=== PATIENT | female | born 1995 | race Caucasian/White ===

== ENCOUNTER 2017-06-03 12:32 | Emergency (ER) | payer BC, MEDICAID ==
[~2017-06-03] VITALS: Ht 162.6 cm; Wt 81.6 kg
[~2017-06-03 12:32] MED LIST: FLAGYL 250MG.250 MG PO; PRENATAL1 TA2 PO
--- OUTSIDE RECORDS SUMMARY | 2017-06-03 12:38 | External Medical Summary Rpt ---
Author Author YVAN [facility] Organization [facility] Address Unknown Phone Unavailable Care Team Providers Care Station Attendant Name Role Phone DR SHIVAM PCP [phone] Encounter YVAN [facility] [id number] Date(s): 07/28/16 - 08/22/16 [facility] [address] [place] [address]- [phone] Discharge Disposition: OP Self Care or Home Attending Physician: GUERLINE JENSEN MD-OBG Admitting Physician: GUERLINE JENSEN MD-OBG Referring Physician: GUERLINE JENSEN MD-OBAdrian Reason for Visit ABNORMAL UTERINE AND VAGINAL BLEEDING, UNSPECIFIED Vital Signs No data available for this section Problem List No data available for this section Allergies, Adverse Reactions, Alerts No data available for this section Medications No data available for this section Results No data available for this section Immunizations No data available for this section Procedures No data available for this section Social History No data available for this section Assessment and Plan No data available for this section Hospital Discharge Instructions No data available for this section
--- OUTSIDE RECORDS SUMMARY | 2017-06-03 12:38 | External Medical Summary Rpt ---
Author Author YVAN [facility] Organization [facility] Address Unknown Phone Unavailable Care Team Providers Care Christian Science Reader Name Role Phone DR SHIVAM PCP [phone] Encounter YVAN [facility] [id number] Date(s): 07/28/16 - 08/22/16 [facility] [address] [place] [address]- [phone] Discharge Disposition: OP Self Care or Home [...]
--- OUTSIDE RECORDS SUMMARY | 2017-06-03 12:38 | External Medical Summary Rpt ---
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 [place] [address]- Discharge Disposition: OP Self Care or Home Attending Physician: GUERLINE JENSEN MD-OBG Admitting Physician: GUERLINE JENSEN MD-OBG Referring Physician: GUERLINE JENSEN MD-OBG Reason for Visit ABNORMAL UTERINE AND VAGINAL BLEEDING, UNSPECIFIED Vital Signs Most recent 1 2 3 to oldest [Reference Range]: Temperature Temporal artery Temporal artery Temporal artery Source scanning (03/23/17 scanning (03/23/17 scanning (03/23/17 3:36 PM) 3:09 PM) 2:20 PM) Temperature Fahrenheit Fahrenheit Fahrenheit Mode (03/23/17 3:36 PM) (03/23/17 3:09 PM) (03/23/17 2:20 PM) Temperature, 98.1 Deg F 97.6 Deg F 97.2 Deg F Fahrenheit (03/23/17 3:36 PM) (03/23/17 3:09 PM) (03/23/17 2:20 PM) [96.8-99.7 Deg F] Clinical 36.4 Deg C 36.2 Deg C 36.8 Deg C Temperature, (03/23/17 3:09 PM) (03/23/17 2:20 PM) (03/23/17 12:56 C PM) Heart Rate 68 bpm 71 bpm 77 bpm Monitored (03/23/17 3:36 PM) (03/23/17 3:09 PM) (03/23/17 3:00 PM) [60-100 bpm] Respiratory 16 Breaths/Min 16 Breaths/Min 16 Breaths/Min Rate [14-20 (03/23/17 3:36 PM) (03/23/17 3:09 PM) (03/23/17 3:00 PM) Breaths/Min] Blood Arm, left upper Pressure (03/23/17 12:56 Location PM) Blood Non-Invasive BP Pressure Device (03/23/17 Source 12:56 PM) Blood Sitting (03/23/17 Pressure 12:56 PM) Position Blood 105/61 mmHg 107/60 mmHg 108/63 mmHg Pressure (03/23/17 3:36 PM) (03/23/17 3:09 PM) (03/23/17 3:00 PM) [90-140/60-9 0 mmHg] Mean 76 mmHg 79 mmHg 79 mmHg Arterial (03/23/17 3:09 PM) (03/23/17 2:50 PM) (03/23/17 2:35 PM) Pressure (MAP) Mean 80 79 84 Arterial (03/23/17 3:09 PM) (03/23/17 2:50 PM) (03/23/17 2:35 PM) Pressure (MAP)-BMDI Oxygen 100 % 99 % 99 % Saturation (03/23/17 3:36 PM) (03/23/17 3:09 PM) (03/23/17 3:00 PM) [94-100 %] Oxygen Room air Room air Room air Therapy Mode (03/23/17 3:36 PM) (03/23/17 3:09 PM) (03/23/17 3:00 PM) Oxygen Flow 2 Liter/Min 2 Liter/Min 2 Liter/Min Rate (03/23/17 2:35 PM) (03/23/17 2:30 PM) (03/23/17 2:20 PM) FiO2 Nursing 2 % (03/23/17 2:25 PM) Height Entry [place] Format (03/23/17 1:08 PM) Height/Lengt 5 ft h, THAI (03/23/17 1:08 PM) (ft) Height/Lengt 6 Inch h THAI (03/23/17 1:08 PM) CLINICALHEIG 167.64 cm HT (03/23/17 1:08 PM) Weight Standing scale Source (03/23/17 1:08 PM) Weight Entry [place] Format (03/23/17 1:08 PM) Weight 181 lb Yi lb (03/23/17 1:08 PM) CLINICALWEIG 82.27 kg HT (03/23/17 1:08 PM) Body Surface 1.92 m2 Area (BSA) (03/23/17 1:08 PM) Body Mass 29.3 kg/m2 Index *HI* [19.0-24.0 (03/23/17 1:08 PM) kg/m2] [place] Body 59 kg Weight (03/23/17 1:08 PM) Problem List No Known Problems Allergies, Adverse Reactions, Alerts No Known Medication Allergies Medications No Known Medications Results ENDOCRINOLOGY Most recent 1 to oldest [Reference Range]: HCG Urine Negative 1 Qualitative (03/23/17 1:07 PM) 1Result Comment: Performed in Day Surgery. Immunizations No data available for this section Procedures Procedure Date Related Body Site Diagnosis hysteroscopy d&c Social History No data available for this section Assessment and Plan No data available for this section Hospital Discharge Instructions No data available for this section
--- OUTSIDE RECORDS SUMMARY | 2017-06-03 12:38 | External Medical Summary Rpt ---
Author Author YVAN [facility] Organization [facility] Address Unknown Phone Unavailable Care Team Providers Care Supervisor Sign Shop Name Role Phone PHY, UNKNOWN PCP Unavailable Encounter YVAN [facility] [id number] Date(s): 08/24/16 - 09/29/16 [facility] [address] [place] [address]- Discharge Diagnosis: Abnormal uterine bleeding (AUB) Discharge Diagnosis: Endometrial polyp Discharge Disposition: OP Self Care or Home Attending Physician: GUERLINE JENSEN MD-OBG Admitting Physician: GUERLINE JENSEN MD-OBG Referring Physician: GUERLINE JENSEN MD-OBG Reason for Visit ABNORMAL UTERINE AND VAGINAL BLEEDING, UNSPECIFIED Vital Signs Most recent 1 2 3 to oldest [Reference Range]: Temperature Temporal artery Temporal artery Temporal artery Source scanning (09/29/16 scanning (09/29/16 scanning (09/29/16 9:55 AM) 9:50 AM) 9:15 AM) Temperature Fahrenheit Fahrenheit Fahrenheit Mode (09/29/16 9:55 AM) (09/29/16 9:50 AM) (09/29/16 9:15 AM) Temperature, 98.5 Deg F 99.1 Deg F 97.8 Deg F Fahrenheit (09/29/16 9:55 AM) (09/29/16 9:50 AM) (09/29/16 9:15 AM) [96.8-99.7 Deg F] Temperature, 37 Deg C Celsius (09/29/16 8:16 AM) [35.2-38.1 Deg C] Clinical 98.6 Deg F Temperature, (09/29/16 8:16 AM) F Clinical 36.9 Deg C 36.6 Deg C Temperature, (09/29/16 9:55 AM) (09/29/16 9:15 AM) C Pulse Method Non-Invasive BP Device (09/29/16 8:16 AM) Pulse Rhythm Regular (09/29/16 8:16 AM) Peripheral 70 bpm Pulse Rate (09/29/16 8:16 AM) [60-100 bpm] Heart Rate 76 bpm 74 bpm 83 bpm Monitored (09/29/16 9:55 AM) (09/29/16 9:50 AM) (09/29/16 9:40 AM) [60-100 bpm] Respiratory 14 Breaths/Min 10 Breaths/Min 12 Breaths/Min Rate [14-20 (09/29/16 9:55 AM) *LOW* *LOW* Breaths/Min] (09/29/16 9:50 AM) (09/29/16 9:40 AM) Blood Arm, left upper Pressure (09/29/16 8:16 AM) Location Blood Non-Invasive BP Pressure Device (09/29/16 Source 8:16 AM) Blood Supine Pressure (09/29/16 8:16 AM) Position Blood 120/66 mmHg 115/57 mmHg 118/60 mmHg Pressure (09/29/16 9:55 AM) (09/29/16 9:50 AM) (09/29/16 9:40 AM) [90-140/60-9 0 mmHg] Mean 78 77 85 Arterial (09/29/16 9:55 AM) (09/29/16 9:50 AM) (09/29/16 9:40 AM) Pressure (MAP)-BMDI Oxygen 98 % 97 % 97 % Saturation (09/29/16 9:55 AM) (09/29/16 9:50 AM) (09/29/16 9:40 AM) [94-100 %] Oxygen Room air Room air Nasal cannula Therapy Mode (09/29/16 9:55 AM) (09/29/16 9:30 AM) (09/29/16 9:15 AM) Oxygen Flow 2 Liter/Min Rate (09/29/16 9:15 AM) Height Stated Source (09/29/16 8:16 AM) Height Entry [place] Format (09/29/16 8:16 AM) Height/Lengt 67 Inch h GERMAN (09/29/16 8:16 AM) CLINICALHEIG 170.18 cm HT (09/29/16 8:16 AM) Weight Standing scale Source (09/29/16 8:16 AM) Weight Entry [place] Format (09/29/16 8:16 AM) Weight 175 lb Maori lb (09/29/16 8:16 AM) CLINICALWEIG 79.55 kg HT (09/29/16 8:16 AM) Body Surface 1.91 m2 Area (BSA) (09/29/16 8:16 AM) Body Mass 27.5 kg/m2 Index *HI* [19.0-24.0 (09/29/16 8:16 AM) kg/m2] [place] Body 61 kg Weight (09/29/16 8:16 AM) Problem List No Known Problems Allergies, Adverse Reactions, Alerts No Known Medication Allergies Medications No Known Medications Results ENDOCRINOLOGY Most recent 1 to oldest [Reference Range]: HCG Urine Negative 1 Qualitative (09/29/16 8:05 AM) 1Result Comment: Performed in Day Surgery. Immunizations No data available for this section Procedures Procedure Date Related Body Site Diagnosis wisdom teeth extraction Social History No data available for this section Assessment and Plan No data available for this section Hospital Discharge Instructions No data available for this section
--- OUTSIDE RECORDS SUMMARY | 2017-06-03 12:38 | External Medical Summary Rpt ---
Author Author YVAN [facility] Organization [facility] Address Unknown Phone Unavailable Care Team Providers Care Insulation Helper Name Role Phone PHY, UNKNOWN PCP Unavailable Encounter YVAN [facility] [id number] Date(s): 01/24/17 - 03/23/17 [facility] [address] [place] [address]- [phone] Discharge Disposition: OP Self Care or Home [...] 2 % (03/23/17 2:25 PM) Height Entry [place] Format (03/23/17 1:08 PM) Height/Lengt 5 ft h, [place] (03/23/17 1:08 PM) (ft) Height/Lengt 6 Inch h [place] (03/23/17 1:08 PM) CLINICALHEIG 167.64 cm HT (03/23/17 1:08 PM) Weight Standing scale Source (03/23/17 1:08 PM) Weight Entry [place] Format (03/23/17 1:08 PM) Weight 181 lb German lb (03/23/17 1:08 PM) CLINICALWEIG 82.27 kg HT (03/23/17 1:08 PM) Body Surface 1.92 m2 Area (BSA) (03/23/17 1:08 PM) Body Mass 29.3 kg/m2 Index *HI* [19.0-24.0 (03/23/17 1:08 PM) kg/m2] [place] Body 59 kg Weight (03/23/17 1:08 PM) [...]
--- OUTSIDE RECORDS SUMMARY | 2017-06-03 12:38 | External Medical Summary Rpt ---
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 [address]- Discharge Diagnosis: Abnormal uterine bleeding (AUB) Discharge [...] Stated Source (09/29/16 8:16 AM) Height Entry [place] Format (09/29/16 8:16 AM) Height/Lengt 67 Inch h ICELANDIC (09/29/16 8:16 AM) CLINICALHEIG 170.18 cm HT (09/29/16 8:16 AM) Weight Standing scale Source (09/29/16 8:16 AM) Weight Entry [place] Format (09/29/16 8:16 AM) Weight 175 lb [place] lb (09/29/16 8:16 AM) CLINICALWEIG 79.55 kg HT (09/29/16 8:16 AM) Body Surface 1.91 m2 Area (BSA) (09/29/16 8:16 AM) Body Mass 27.5 kg/m2 Index *HI* [19.0-24.0 (09/29/16 8:16 AM) kg/m2] [place] Body 61 kg Weight (09/29/16 8:16 AM) [...]
--- OUTSIDE RECORDS SUMMARY | 2017-06-03 12:39 | External Medical Summary Rpt | CCD ---
Author Author , BRYAN ADAMS Address Unknown Phone [email or web address] Purpose Continuity of Care Document - 05-20-2014 through 2016 Results Labs Lab Lab Date Result Refere Interp Status Commen Order Detail nces retati t Range on TSH SerPl DL<=0.005 mIU/L-aCnc (03-16-2017 11:57) TSH TCON 0.4-4.2 complet SerPl 017 Multipl ed DL<=0.0 11:57 e SCM 05 orders. mIU/L-a Tests Cnc consoli dated. L uIU/mL T4 Free SerPl-mCnc (03-16-2017 11:57) T4 Free TCON 0.8-1.7 complet 017 Multipl ed SerPl-m 11:57 e SCM Cnc orders. Tests consoli dated. L ng/dL TSH SerPl DL<=0.005 mIU/L-aCnc (03-16-2017 11:57) TSH 1.88 0.4-4.2 complet SerPl 017 uIU/mL ed DL<=0.0 11:57 05 mIU/L-a Cnc T4 Free SerPl-mCnc (03-16-2017 11:57) T4 Free 1.2 0.8-1.7 complet 017 ng/dL ed SerPl-m 11:57 Cnc ICTOTEST (05-20-2014 18:45) ICTOTES NEGATIV complet T 014 E ed 18:45 UA, MICROSCOPIC REVIEW (05-20-2014 18:45) BACTERI 1+ HPF Absent complet A 014 ed 18:45 MUCOUS 1+ complet 014 ed 18:45 WBC -- 5-10 0-5 complet 014 HPF ed 18:45 EPITHEL 05-20- 5-10 complet IAL 014 HPF ed CELLS 18:45 URINALYSIS COMPLETE (05-20-2014 18:45) LEUKOCY 11-11-2 TRACE NEGATIV complet ESSENCE 014 E ed 18:45 NITRITE 11-11-2 NEGATIV NEGATIV complet 014 E E ed 18:45 UROBILI 11-11-2 1.0 0.2-1.0 complet NOGEN 014 E.U./DL ed 18:45 PROTEIN 11-11-2 TRACE NEGATIV complet 014 MG/DL E ed 18:45 PH 11-11-2 5.5 5.0-9.0 complet 014 ed 18:45 BLOOD 11-11-2 NEGATIV NEGATIV complet 014 E E ed 18:45 SPECIFI 11-11-2 1.029 1.006-1 complet C 014 .035 ed GRAVITY 18:45 KETONE 11-11-2 NEGATIV NEGATIV complet 014 E MG/DL E ed 18:45 BILIRUB 11-11-2 SMALL NEGATIV complet IN 014 E ed 18:45 GLUCOSE 11-11-2 NEGATIV NEGATIV complet 014 E MG/DL E ed 18:45 CLARITY 11-11-2 CLOUDY complet 014 ed 18:45 COLOR 11-11-2 YELLOW complet 014 ed 18:45 COMP. METABOLIC PANEL (CHEM 12) (05-20-2014 18:45) GLOBULI 11-11-2 3.7 2.4-4.8 complet N 014 G/DL ed 18:45 SODIUM 11-11-2 140 133-144 complet 014 mmol/L ed 18:45 BUN 11-11-2 9 MG/DL 7-18 complet 014 ed 18:45 GLUCOSE 11-11-2 96 70-110 complet 014 MG/DL ed 18:45 BILIRUB 11-11-2 0.40 0.00-1. complet IN, 014 MG/DL 00 ed TOTAL 18:45 ALT 11-11-2 14 U/L 12-78 complet 014 ed 18:45 AST 11-11-2 11 U/L 15-37 complet 014 ed 18:45 ALKALIN 11-11-2 82 U/L 45-117 complet E 014 ed PHOSPHA 18:45 TASE CALCIUM 11-11-2 9.4 8.5-10. complet 014 MG/DL 1 ed 18:45 A/G 11-11-2 1.3 0.6-1.6 complet RATIO 014 ed 18:45 ALBUMIN 11-11-2 4.9 3.4-5.0 complet 014 G/DL ed 18:45 PROTEIN 11-11-2 8.6 6.4-8.4 complet , TOTAL 014 G/DL ed 18:45 CREATIN 11-11-2 0.7 0.6-1.3 complet INE 014 MG/DL ed 18:45 CO2 11-11-2 28 21-32 complet 014 mmol/L ed 18:45 CHLORID -11-2 104 98-107 complet E 014 mmol/l ed 18:45 POTASSI -11-2 3.6 3.6-5.2 complet UM 014 mmol/l ed 18:45 LIPASE (05-20-2014 18:45) LIPASE -11-2 75 U/L 73-393 complet 014 ed 18:45 AMYLASE (05-20-2014 18:45) AMYLASE -11-2 57 U/L 25-115 complet 014 ed 18:45 URINE HCG (05-20-2014 18:45) URINE -11-2 NEGATIV complet HCG 014 E ed 18:45 CBC\T\AUTO DIFF (05-20-2014 18:45) NEUT # -11-2 4.8 2.7-6.9 complet 014 K/ul ed 18:45 BASO% 11-11-2 0.5 % 0.0-2.0 complet 014 ed 18:45 EOS% 11-11-2 1.7 % 0.0-11. complet 014 0 ed 18:45 MONOS% 11-11-2 7.4 % 1.0-14. complet 014 0 ed 18:45 LYMPH% 11-11-2 29.4 % 10.0-42 complet 014 .0 ed 18:45 NEUTROP 11-11-2 61.0 % 43.0-83 complet HILS% 014 .0 ed 18:45 MPV 11-11-2 9.4 fl 6.4-10. complet 014 4 ed 18:45 PLATELE -11-2 304 122-454 complet T 014 K/UL ed 18:45 RDW 11-11-2 13.0 % 10.1-16 complet 014 .2 ed 18:45 MCHC 11-11-2 33.1 32.5-35 complet 014 g/dl .3 ed 18:45 MCH 11-11-2 31.1 pg 26.4-33 complet 014 .3 ed 18:45 MCV 11-11-2 93.8 fl 78.2-10 complet 014 1.8 ed 18:45 HCT 11-11-2 44.7 % 29.9-45 complet 014 .5 ed 18:45 HGB -11-2 14.8 10.0-16 complet 014 gm/dl .0 ed 18:45 RBC 11-11-2 4.770 3.450-5 complet 014 M/ul .400 ed 18:45 WBC 11-11-2 7.9 3.0-11. complet 014 K/UL 3 ed 18:45 BASO# 11-11-2 0.0 0.0-0.2 complet 014 K/ul ed 18:45 EOS# 11-11-2 0.1 0.0-0.9 complet 014 K/ul ed 18:45 MONOS# 11-11-2 0.6 0.2-0.6 complet 014 K/ul ed 18:45 LYMPH# 11-11-2 2.3 0.4-3.9 complet 014 K/ul ed 18:45
--- OUTSIDE RECORDS SUMMARY | 2017-06-03 12:39 | External Medical Summary Rpt | CCD ---
Author Author [facility] Address Unknown Phone Unavailable Purpose Continuity of Care Document - through 2016
--- OUTSIDE RECORDS SUMMARY | 2017-06-03 12:39 | External Medical Summary Rpt | CCD ---
Author Author , SHIRA ADAMS Address Unknown Phone [email or web address] Immunization Name Date Rout CVX Reac Dose Comm Prov Is Faci e tion ent ider Refu lity Give sed n Infl 10-0 Intr 150 0.5 Hist KHAF No RITE uenz 5-20 amus mL oric LEONARDO AID0 a 17 cula al AYMA 3938 Quad r Info N Inj rmat ion - Sour ce Unsp ecif ied
--- OUTSIDE RECORDS SUMMARY | 2017-06-03 12:39 | External Medical Summary Rpt | CCD ---
Author Author , BRYAN ADAMS Address Unknown Phone [email or web address] Purpose Continuity of Care Document - 05-20-2014 [...]
--- OUTSIDE RECORDS SUMMARY | 2017-06-03 12:39 | External Medical Summary Rpt | CCD ---
Author Author , SHIRA ADAMS Address Unknown Phone [employer] Immunization Name Date Rout CVX Reac Dose Comm Prov Is Faci e tion ent ider Refu lity Give sed n Infl 10-0 Intr 150 0.5 Hist KHAF No RITE uenz 5-20 amus mL oric LEONARDO AID0 a 17 cula al AYMA 3938 Quad r Info N Inj rmat ion - Sour ce Unsp ecif ied
--- NOTE | 2017-06-03 12:50 | Urgent Treatment Center Report ---
History of Present Issue Date/Time Seen by Provider 06/03/17 2689 Visit Reason Pt arrived:Walked Presenting Problem:PT HERE REQUESTING BLOOD TEST Location if Accident: Onset of symptoms date/time:/ or onset unknown for:MEDICAL HX UNKNOWN Have you (or family members/close friends) recently traveled outside the [facility]? N If Yes, where/when: Have you had exposure to infectious disease within the past month? TB? Other? Specify: pt requesting blood test. Reports her and spouse had N/V/D weeks ago. Spouse's resolved as did her diarrhea but has remained nauseated w/ intermittent vomiting. Adament she is not here for that and only wants blood test because LMP one month ago and has a hx of negative urine tests with daughter "even when it was obvious I was ". States she talked to her OB today, one at [facility], and they told her to go to a clinic today and request a blood test then call them with results. They did not provide pt with outpt order. Pt denies abdominal pain, leaking, bleeding, cramping, dysuria. Source patient Exam Limitations no limitations ALLERGIES Coded Allergies: No Known Allergies (12/21/15) Home Medications Reported Medications No Known Home Medications History Medical History General CAD? No Angina: No PR: No Hypertension? No Hyperlipidemia? No CHF? No DVT? No PE? No COPD? No Asthma? No Anemia? No GERD? No Gastric ulcers? No GI Bleed? No Hernia? No Thyroid Problems? No Hypothyroidism? No CVA? No Seizures? No Diabetes? No Renal Insuffiency? No UTI? No Stones? No BPH? No GB Disease: No Nephritic Syndrome? No Asplenia? No Hepatitis? No Sickle Cell Disease? No Arthritis? No Migraines? No Cataracts? No Glaucoma? No MRSA? No HIV? No TB? No Anxiety? No Depression? No Cancer? No Immunization HX DT/Tetanus 1-4 Years Ago Flu Refused Pneumonia Never Had Surgical Hx Previous Surgery?N Social History Smoking Hx Smoker: Never Smoker Tobacco: No Alcohol Alcohol: No Review of Systems All Other Systems Reviewed and Negative (as appropriate for CC) Constitutional denies chills, denies fever Respiratory denies shortness of breath Cardiovascular denies chest pain, denies edema, denies palpitations Gastrointestinal see HPI Genitourinary denies: frequency, hesitancy, hematuria, pelvic pain. Musculoskeletal denies back pain, denies joint pain Skin denies lesions, denies lumps, denies rash Psychiatric/Neurological denies headache, denies other (dizziness) Comment breast tenderness Physical Exam Vital Signs Vital Signs Date Time Temp Pulse Resp B/P Pulse O2 O2 Flow FiO2 Ox Delivery Rate 06/03 1356 98.0 70 20 99/67 98 06/03 1243 98.0 77 20 99 98 General Appearance normal appearance, no apparent distress, active (playing with toddler) Respiratory Status No: respiratory distress. Cardiovascular no peripheral edema Gastrointestinal normal bowel sounds, non tender, soft Back no CVA tenderness Neurologic alert, oriented x 3 Skin normal color, warm/dry Lymphatic no adenopathy Medical Decision Making LABS/Meds/Orders Pt receiving controlled substance in ED? No Results/Orders Orders Procedure Date/time Status SERUM , QUAL 06/03 1255 Complete Departure Departure Time of Disposition 1350 Disposition DC Home or Self Care(routine) Clinical Impression Primary Impression: Nausea Secondary Impressions: Menstrual period late Condition STABLE Referrals NO REFERRAL Follow up with primary care if symptoms persist. Be sure to notify OB at [facility] that your serum hcg test was negative so they can further workup your symptoms Patient Instructions DI for Nausea -- Adult Additional Instructions negative hcg. Be sure to follow up with PCP or OB Discharge Counseling Counseled pt/family regarding diagnosis, test results, follow up needs Prescriptions Current Visit Scripts No Known Home Medications at 2028
--- NOTE | 2017-06-03 12:50 | [facility] Report ---
History of Present Issue Date/Time Seen by Provider 06/03/17 2619 Visit Reason Pt arrived:Walked Presenting Problem:PT HERE REQUESTING BLOOD TEST Location if Accident: Onset of symptoms date/time:/ or onset unknown for:MEDICAL HX UNKNOWN Have you (or family members/close friends) recently traveled outside the [facility]? N If Yes, where/when: Have you had exposure to infectious disease within the past month? TB? Other? Specify: pt requesting blood test. Reports her and spouse had N/V/D weeks ago. Spouse's resolved as did her diarrhea but has remained nauseated w/ intermittent vomiting. Adament she is not here for that and only wants blood test because LMP one month ago and has a hx of negative urine tests with daughter "even when it was obvious I was ". States she talked to her OB today, one at [facility], and they told her to go to a clinic today and request a blood test then call them with results. They did not provide pt with outpt order. Pt denies abdominal pain, leaking, bleeding, cramping, dysuria. Source patient Exam Limitations no limitations ALLERGIES Coded Allergies: No Known Allergies (12/21/15) Home Medications Reported Medications No Known Home Medications History Medical History General CAD? No Angina: No CT: No Hypertension? No Hyperlipidemia? No CHF? No DVT? No PE? No COPD? No Asthma? No Anemia? No GERD? No Gastric ulcers? No GI Bleed? No Hernia? No Thyroid Problems? No Hypothyroidism? No CVA? No Seizures? No Diabetes? No Renal Insuffiency? No UTI? No Stones? No BPH? No GB Disease: No Nephritic Syndrome? No Asplenia? No Hepatitis? No Sickle Cell Disease? No Arthritis? No Migraines? No Cataracts? No Glaucoma? No MRSA? No HIV? No TB? No Anxiety? No Depression? No Cancer? No Immunization HX DT/Tetanus 1-4 Years Ago Flu Refused Pneumonia Never Had Surgical Hx Previous Surgery?N Social History Smoking Hx Smoker: Never Smoker Tobacco: No Alcohol Alcohol: No Review of Systems All Other Systems Reviewed and Negative (as appropriate for CC) Constitutional denies chills, denies fever Respiratory denies shortness of breath Cardiovascular denies chest pain, denies edema, denies palpitations Gastrointestinal see HPI Genitourinary denies: frequency, hesitancy, hematuria, pelvic pain. Musculoskeletal denies back pain, denies joint pain Skin denies lesions, denies lumps, denies rash Psychiatric/Neurological denies headache, denies other (dizziness) Comment breast tenderness Physical Exam Vital Signs Vital Signs Date Time Temp Pulse Resp B/P Pulse O2 O2 Flow FiO2 Ox Delivery Rate 06/03 1356 98.0 70 20 99/67 98 06/03 1243 98.0 77 20 99 98 General Appearance normal appearance, no apparent distress, active (playing with toddler) Respiratory Status No: respiratory distress. Cardiovascular no peripheral edema Gastrointestinal normal bowel sounds, non tender, soft Back no CVA tenderness Neurologic alert, oriented x 3 Skin normal color, warm/dry Lymphatic no adenopathy Medical Decision Making LABS/Meds/Orders Pt receiving controlled substance in ED? No Results/Orders Orders Procedure Date/time Status SERUM , QUAL 06/03 1255 Complete Departure Departure Time of Disposition 1350 Disposition DC Home or Self Care(routine) Clinical Impression Primary Impression: Nausea Secondary Impressions: Menstrual period late Condition STABLE Referrals NO REFERRAL Follow up with primary care if symptoms persist. Be sure to notify OB at [facility] that your serum hcg test was negative so they can further workup your symptoms Patient Instructions DI for Nausea -- Adult Additional Instructions negative hcg. Be sure to follow up with PCP or OB Discharge Counseling Counseled pt/family regarding diagnosis, test results, follow up needs Prescriptions Current Visit Scripts No Known Home Medications at 2028
[2017-06-03 13:56] VITALS: BP 99/67
== END 2017-06-03 13:56 | disposition home or self-care (01) ==
LOC: UTC 12:32
DX: Z32.02 Encounter for pregnancy test, result negative (principal); R11.0 Nausea